=== PATIENT | male | born 1955 | race Caucasian/White ===

== ENCOUNTER → 2017-12-06 | Outpatient (CLI) | payer MEDICARE, OTHER, BC ==
[2017-12-06 08:45] LABS: HEMATOCRIT 41.3 % (42.0-52.0); HEMOGLOBIN 14.1 g/dl (13.5-17.5); MEAN CORPUSCULAR HEMOGLOBIN 30.7 pg (27.0-33.0); MEAN CORPUSCULAR HGB CONC 34.1 g/dl (32.0-36.5); PLATELET COUNT, AUTOMATED 191 10^3/uL (150-450); RED BLOOD COUNT 4.59 10^6/uL (4.30-6.10); RED CELL DISTRIBUTION WIDTH 13.2 % (11.5-14.5); WHITE BLOOD COUNT 5.9 10^3/uL (4.0-10.0)
[2017-12-06 08:50] LABS: APPEARANCE, URINE HAZY (CLEAR); BACTERIA, URINE AUTO NEGATIVE (NEGATIVE); BILIRUBIN, URINE AUTO NEGATIVE (NEGATIVE); BLOOD, URINE BLOOD NEGATIVE (NEGATIVE); COLOR, URINE YELLOW (YELLOW); GLUCOSE, URINE (UA) AUTO NEGATIVE (NEGATIVE); KETONE, URINE AUTO NEGATIVE (NEGATIVE); LEUKOCYTE ESTERASE, URINE AUTO NEGATIVE (NEGATIVE); NITRITE, URINE AUTO NEGATIVE (NEGATIVE); PROTEIN, URINE AUTO 1+ mg/dL (NEGATIVE); RBC, URINE AUTO 0 /HPF (0-3); SPECIFIC GRAVITY URINE AUTO 1.018 (1.002-1.035); SQUAMOUS EPITHELIAL CELL UR AU 0 /HPF (0-6); UROBILINOGEN, URINE AUTO 0.2 mg/dL (0.0-2.0); WBC, URINE AUTO 1 /HPF (0-3)
[2017-12-06 09:05] LABS: BLOOD UREA NITROGEN 15 MG/DL (7-18)
[2017-12-06 09:05] LABS: ALT/SGPT 45 U/L (12-78); AST/SGOT 27 U/L (7-37); CREATININE FOR GFR 0.89 MG/DL (0.70-1.30); GLOMERULAR FILTRATION RATE > 60.0 (>49); POTASSIUM SERUM 4.5 MEQ/L (3.5-5.1)
[2017-12-06 09:08] LABS: ESTIMATED AVERAGE GLUCOSE 166 MG/DL (60-110); HEMOGLOBIN A1c 7.4 %
[2017-12-06 09:11] LABS: ALBUMIN 3.8 GM/DL (3.2-5.2); ALBUMIN/GLOBULIN RATIO 1.19 (1.00-1.93); ALKALINE PHOSPHATASE 54 U/L (45-117); ALT/SGPT 44 U/L (12-78); ANION GAP 10 MEQ/L (8-16); AST/SGOT 28 U/L (7-37); BILIRUBIN,TOTAL 0.5 MG/DL (0.2-1.0); BLOOD UREA NITROGEN 15 MG/DL (7-18); CALCIUM LEVEL 8.8 MG/DL (8.8-10.2); CARBON DIOXIDE LEVEL 27 MEQ/L (21-32); CHLORIDE LEVEL 104 MEQ/L (98-107); CHOLESTEROL LEVEL 182 MG/DL (<200); CHOLESTEROL RISK RATIO 4.789 (<5); CREATININE FOR GFR 0.86 MG/DL (0.70-1.30); GLOMERULAR FILTRATION RATE > 60.0 (>49); GLUCOSE, FASTING 154 MG/DL (70-100); HDL CHOLESTEROL 38 MG/DL (>40); NON-HDL-C 144 MG/DL; POTASSIUM SERUM 4.8 MEQ/L (3.5-5.1); SODIUM LEVEL 141 MEQ/L (136-145); TRIGLYCERIDES LEVEL 459 MG/DL (<150)
== END ==
LOC: M WUC 08:09
DX: Z00.00 Encounter for general adult medical examination without abnormal findings (principal); E78.00 Pure hypercholesterolemia, unspecified; E11.9 Type 2 diabetes mellitus without complications
CPT/HCPCS: 84460

== ENCOUNTER → 2018-11-21 | Outpatient (REF) | payer MEDICARE, OTHER ==
[2018-11-21 13:53] LABS: HEMOGLOBIN A1c 6.9 %
== END ==
LOC: M SFHCPLAZ 10:06
PROVIDERS: ATTEND Family Medicine
DX: E11.9 Type 2 diabetes mellitus without complications (principal)

== ENCOUNTER → 2019-01-07 | Outpatient (REF) | payer MEDICARE, OTHER ==
[2019-01-07 13:41] LABS: CALCIUM LEVEL 9.1 MG/DL (8.8-10.2); CREATININE FOR GFR 3.47 MG/DL (0.70-1.30); GLOMERULAR FILTRATION RATE 19.1 (>49); POTASSIUM SERUM 5.9 MEQ/L (3.5-5.1)
[2019-01-07 13:45] LABS: CREATININE, URINE 40.1 MG/DL; MALB URINE SIEMENS 56.9 MG/L; MAU/CREAT RATIO 141.8 MCG/MG (0.0-30.0)
== END ==
LOC: M SFHCPLAZ 09:17
PROVIDERS: ATTEND Student in an Organized Health Care Education/Training Program
DX: E11.9 Type 2 diabetes mellitus without complications (principal)

== ENCOUNTER → 2019-12-25 | Outpatient (CLI) | payer MEDICARE, OTHER ==
[2019-12-25 14:39] LABS: BLOOD UREA NITROGEN 19 MG/DL (7-18); CALCIUM LEVEL 9.7 MG/DL (8.8-10.2); CARBON DIOXIDE LEVEL 29 MEQ/L (21-32); CHLORIDE LEVEL 102 MEQ/L (98-107); CHOLESTEROL LEVEL 196 MG/DL (<200); CREATININE FOR GFR 0.84 MG/DL (0.70-1.30); GLOMERULAR FILTRATION RATE > 60.0 (>49); GLUCOSE, FASTING 116 MG/DL (70-100); HDL CHOLESTEROL 47 MG/DL (>40); LDL CHOLESTEROL 79 MG/DL (<100); NON-HDL-C 149 MG/DL; POTASSIUM SERUM 4.7 MEQ/L (3.5-5.1); SODIUM LEVEL 135 MEQ/L (136-145); TRIGLYCERIDES LEVEL 349 MG/DL (<150)
[2019-12-25 14:48] LABS: CREATININE, URINE 65.3 MG/DL; MALB URINE SIEMENS 93.4 MG/L
[2019-12-25 14:50] LABS: HEMOGLOBIN A1c 6.4 %
== END ==
LOC: M PLALAB 09:11
PROVIDERS: ATTEND Family Medicine
DX: E11.9 Type 2 diabetes mellitus without complications (principal); N18.3 Chronic kidney disease, stage 3 (moderate)

== ENCOUNTER → 2020-09-15 | Outpatient (REF) | payer MEDICARE, OTHER ==
[2020-09-15 14:51] LABS: ALT/SGPT 36 U/L (12-78); BILIRUBIN,TOTAL 0.8 MG/DL (0.2-1.0); BLOOD UREA NITROGEN 22 MG/DL (7-18); CALCIUM LEVEL 9.4 MG/DL (8.8-10.2); CARBON DIOXIDE LEVEL 27 MEQ/L (21-32); CHLORIDE LEVEL 104 MEQ/L (98-107); CHOLESTEROL LEVEL 183 MG/DL (<200); CHOLESTEROL RISK RATIO 3.452 (<5); CREATININE FOR GFR 0.83 MG/DL (0.70-1.30); GLOMERULAR FILTRATION RATE > 60.0 (>49); GLUCOSE, FASTING 106 MG/DL (70-100); HDL CHOLESTEROL 53 MG/DL (>40); LDL CHOLESTEROL 95 MG/DL (<100); NON-HDL-C 130 MG/DL; POTASSIUM SERUM 4.8 MEQ/L (3.5-5.1); SODIUM LEVEL 137 MEQ/L (136-145); TRIGLYCERIDES LEVEL 175 MG/DL (<150)
[2020-09-15 18:37] LABS: HEMOGLOBIN A1c 6.3 %
== END ==
LOC: M PLALAB 09:05
PROVIDERS: ATTEND Family Medicine
DX: E78.00 Pure hypercholesterolemia, unspecified (principal); N18.31 Chronic kidney disease, stage 3a; E11.22 Type 2 diabetes mellitus with diabetic chronic kidney disease

== ENCOUNTER → 2020-10-16 | Outpatient (CLI) | payer MEDICARE, BC, OTHER ==
--- NOTE | 2020-10-16 08:28 | REP ---
INDICATION: CARDIAC MURMUR, UNSPECIFIED COMPARISON: None. TECHNIQUE: Multiple ultrasonographic images of the abdominal aorta were obtained from the level of the celiac access to the aortoiliac bifurcation and the longitudinal and transverse scan planes along with color Doppler imaging. FINDINGS: The maximal AP dimension of the abdominal aorta as measured in the longitudinal scan plane is 2.7 cm. There is no evidence of common iliac arterial ectasia IMPRESSION: No evidence of abdominal aortic aneurysm. <Electronically signed by Riley Diehl > 10/16/20 [id number]
--- NOTE | 2020-10-16 20:23 | ECHO ---
ECHOCARDIOGRAM DATE OF PROCEDURE: 10/16/2020 Age: 65 Gender: Male Height: 180 cm Weight: 106 kg REFERRING PHYSICIAN: Carolynn Vasques M.D. INDICATION: Heart murmur. MEASUREMENTS: IVS 1.4 cm LV 5.4 cm LVPW 1.4 cm LA 4.9 cm Aorta 3.6 cm Left atrium volume index 34 ml/m2 Mitral E wave velocity 56 cm/s A wave 68 cm/s E prime septal 4.9 cm/s E prime lateral 6.5 cm/s FINDINGS: This study is of acceptable technical quality. Underlying sinus bradycardia with ventricular rate a little below 50 beats per minute. QRS complex is mildly widened. Left ventricle is normal size. Mild left ventricular hypertrophy is noted. Overall normal systolic function with estimated ejection fraction (EF) of 55-60%. Right ventricle is normal size and systolic function. Left atrium is moderately enlarged. Right atrium was poorly seen. Aortic valve is calcified and it has restricted mobility. Mitral and tricuspid valves appear normal. Pulmonic valve was poorly seen. No pericardial effusion is noted. Inferior vena cava was not seen. Aortic root, aortic arch and visualized segment of abdominal aorta appear grossly normal based on somewhat limited views. Doppler interrogation of aortic valve reveals mild insufficiency and moderate stenosis. Peak gradient was 46, mean gradient 27. Calculated aortic valve area was 1.0 cm2, which likely overestimates severity of aortic stenosis. Dimensional index was 0.26. There is trace mitral and trace tricuspid insufficiency. Quality of TR jet was not sufficient to estimate pulmonary artery pressure. Mitral inflow pattern and tissue Doppler imaging of mitral annulus reveal grade 1 diastolic dysfunction. CONCLUSIONS: 1. Study is of acceptable technical quality. Patient is in sinus bradycardia with wide QRS complex. 2. Normal left ventricular (LV) size with moderate left ventricular hypertrophy (LVH) and preserved systolic function. Grade 1 diastolic dysfunction. 3. Calcific but tricuspid aortic valve. Resulting mild insufficiency and at least moderate stenosis (mean gradient 27 mmHg, dimensionless index 0.26). 4. Trace mitral and tricuspid insufficiency. 5. Unable to reliably estimate central venous pressure and pulmonary artery pressure. COMMENTS: If patient is asymptomatic, follow up in 1 year is recommended. MTDD
== END ==
LOC: M RAD 07:01
PROVIDERS: ATTEND Family Medicine
DX: R01.1 Cardiac murmur, unspecified (principal); I35.8 Other nonrheumatic aortic valve disorders; R00.1 Bradycardia, unspecified; F17.211 Nicotine dependence, cigarettes, in remission

== ENCOUNTER → 2020-12-22 | Outpatient (CLI) | payer MEDICARE, BC, OTHER ==
[2020-12-22 11:38] LABS: CREATININE, URINE 13.2 MG/DL; MALB URINE SIEMENS 26.1 MG/L; MAU/CREAT RATIO 197.7 MCG/MG (0.0-30.0)
[2020-12-22 12:19] LABS: HEMOGLOBIN A1c 6.9 %
== END ==
LOC: M LAB 09:50
PROVIDERS: ATTEND Family Medicine
DX: E11.9 Type 2 diabetes mellitus without complications (principal)

== ENCOUNTER → 2021-11-01 | Outpatient (CLI) | payer MEDICARE, BC, OTHER ==
[~2021-11-01] MED LIST: JARD1TAB PO; LISI5TAB11 PO; METF10004 PO; ROSU20TA5 PO; VITMTA PO
== END ==
LOC: M LABSMTC 09:26
PROVIDERS: ATTEND Anesthesiology
DX: Z01.812 Encounter for preprocedural laboratory examination (principal); Z20.822 Contact with and (suspected) exposure to COVID-19

== ENCOUNTER 2021-11-04 06:48 | Day surgery (SDC) | payer MEDICARE, BC, OTHER ==
[~2021-11-04] VITALS: Ht 177.8 cm; Wt 103.4 kg
[~2021-11-04 06:48] MED LIST changes: +NS 1,000 ML IV ONE
[2021-11-04] MEDS ORDERED: LIDOCAINE 2% 100MG/5ML SDV (FOR ANES.) As Ordered ONE (07:39)
[2021-11-04] MEDS ORDERED: propofoL 200 MG/20 ML VIAL As Ordered ONE (07:39)
[2021-11-04] MEDS ORDERED: hydrALAZINE 20MG/ML 1ML VIAL (J0360 PER 20MG) As Ordered ONE (07:41)
[2021-11-04 08:10] VITALS: BP 128/60
== END 2021-11-04 08:27 | disposition home or self-care (01) ==
LOC: M OPP 06:48
PROVIDERS: ATTEND Surgery
DX: Z86.010 Personal history of colon polyps (principal); D12.6 Benign neoplasm of colon, unspecified; I10 Essential (primary) hypertension; E78.5 Hyperlipidemia, unspecified; E11.9 Type 2 diabetes mellitus without complications; M19.90 Unspecified osteoarthritis, unspecified site; Z87.891 Personal history of nicotine dependence; Z88.1 Allergy status to other antibiotic agents; Z79.84 Long term (current) use of oral hypoglycemic drugs; Z79.899 Other long term (current) drug therapy
CPT/HCPCS: 45385; 88305; J0360

== ENCOUNTER → 2022-09-06 | Outpatient (CLI) | payer MEDICARE, BC, OTHER ==
[~2022-09-06] MED LIST changes: -NS 1,000 ML IV ONE; -ROSU20TA5 PO; +ROSU20TA61 PO
[2022-09-06 16:42] LABS: BASO # 0.1 10^3/uL (0.0-0.2); BASO % 0.6 % (0.0-1.0); EOS # 0.2 10^3/uL (0.0-0.5); EOS % 2.8 % (0.0-3.0); HEMATOCRIT 44.4 % (42.0-52.0); HEMOGLOBIN 14.4 g/dl (13.5-17.5); LYMPH # 2.2 10^3/uL (1.5-5.0); LYMPH % 28.8 % (24.0-44.0); MEAN CORPUSCULAR HEMOGLOBIN 29.9 pg (27.0-33.0); MEAN CORPUSCULAR HGB CONC 32.4 g/dl (32.0-36.5); MEAN CORPUSCULAR VOLUME 92.3 fl (80.0-96.0); MONO # 0.8 10^3/uL (0.0-0.8); MONO % 10.2 % (2.0-8.0); NEUTROPHILS # 4.4 10^3/uL (1.5-8.5); NEUTROPHILS % 57.1 % (36.0-66.0); PLATELET COUNT, AUTOMATED 222 10^3/uL (150-450); RED BLOOD COUNT 4.81 10^6/uL (4.30-6.10); WHITE BLOOD COUNT 7.7 10^3/uL (4.0-10.0)
[2022-09-06 16:49] LABS: ALBUMIN 4.2 G/DL (3.2-5.2); ALKALINE PHOSPHATASE 60 U/L (46-116); ALT/SGPT 30 U/L (7.0-40); AST/SGOT 31 U/L (<34); BILIRUBIN,TOTAL 0.7 MG/DL (0.3-1.2); BLOOD UREA NITROGEN 17 MG/DL (9-23); CALCIUM LEVEL 9.3 MG/DL (8.3-10.6); CARBON DIOXIDE LEVEL 27 MMOL/L (20-31); CHLORIDE LEVEL 105 MMOL/L (98-107); CHOLESTEROL LEVEL 162 MG/DL (<200); CHOLESTEROL RISK RATIO 2.81 (<5); CREATININE FOR GFR 0.83 MG/DL (0.70-1.30); GLOMERULAR FILTRATION RATE > 60.0 (>49); GLUCOSE, FASTING 121 MG/DL (74-106); HDL CHOLESTEROL 57.6 MG/DL (>40); LDL CHOLESTEROL 75.8 MG/DL (<100); NON-HDL-C 104.4 MG/DL; POTASSIUM SERUM 5.2 MMOL/L (3.5-5.1); SODIUM LEVEL 139 MMOL/L (136-145); TRIGLYCERIDES LEVEL 143 MG/DL (<150)
[2022-09-06 16:50] LABS: FREE T4 1.13 NG/DL (0.89-1.76); THYROID STIMULATING HORMONE 1.989 uIU/ML (0.55-4.78); TOTAL 25(OH) VITAMIN D 32.7 NG/ML (20.0-100.0)
== END ==
LOC: M PLALAB 12:53
PROVIDERS: ATTEND Physician Assistant
DX: E78.2 Mixed hyperlipidemia (principal); E11.9 Type 2 diabetes mellitus without complications; I10 Essential (primary) hypertension; Z76.89 Persons encountering health services in other specified circumstances; Z12.5 Encounter for screening for malignant neoplasm of prostate; Z79.899 Other long term (current) drug therapy

== ENCOUNTER → 2023-09-12 | Outpatient (CLI) | payer MEDICARE, BC, OTHER ==
[2023-09-12 13:15] LABS: BASO # 0.1 10^3/uL (0.0-0.2); BASO % 0.7 % (0.0-1.0); EOS # 0.3 10^3/uL (0.0-0.5); EOS % 3.1 % (0.0-3.0); HEMOGLOBIN 14.9 g/dl (13.5-17.5); LYMPH % 24.3 % (24.0-44.0); MEAN CORPUSCULAR HEMOGLOBIN 29.6 pg (27.0-33.0); MEAN CORPUSCULAR HGB CONC 32.4 g/dl (32.0-36.5); MEAN CORPUSCULAR VOLUME 91.5 fl (80.0-96.0); MONO # 0.8 10^3/uL (0.0-0.8); MONO % 9.3 % (2.0-8.0); NEUTROPHILS % 62.2 % (36.0-66.0); PLATELET COUNT, AUTOMATED 195 10^3/uL (150-450); RED BLOOD COUNT 5.03 10^6/uL (4.30-6.10)
[2023-09-12 13:34] LABS: CREATININE, URINE 58.8 MG/DL
[2023-09-12 13:41] LABS: MAU/CREAT RATIO 103.7 MCG/MG (0.0-30.0)
[2023-09-12 13:44] LABS: TOTAL 25(OH) VITAMIN D 33.3 NG/ML (20.0-100.0); VITAMIN B12 LEVEL 305 PG/ML (211-911)
[2023-09-12 13:48] LABS: ALBUMIN 3.9 G/DL (3.2-5.2); ALKALINE PHOSPHATASE 53 U/L (46-116); ALT/SGPT 24 U/L (7.0-40); AST/SGOT 15 U/L (<34); BILIRUBIN,TOTAL 0.9 MG/DL (0.3-1.2); BLOOD UREA NITROGEN 19 MG/DL (9-23); CALCIUM LEVEL 9.6 MG/DL (8.3-10.6); CARBON DIOXIDE LEVEL 28 MMOL/L (20-31); CHLORIDE LEVEL 104 MMOL/L (98-107); CHOLESTEROL LEVEL 177 MG/DL (<200); CREATININE FOR GFR 0.85 MG/DL (0.70-1.30); GLOMERULAR FILTRATION RATE > 60.0 (>49); GLUCOSE, FASTING 116 MG/DL (74-106); POTASSIUM SERUM 4.8 MMOL/L (3.5-5.1); SODIUM LEVEL 139 MMOL/L (136-145); TRIGLYCERIDES LEVEL 255 MG/DL (<150)
== END ==
LOC: M PLALAB 10:47
PROVIDERS: ATTEND Physician Assistant
DX: N52.9 Male erectile dysfunction, unspecified (principal); E11.9 Type 2 diabetes mellitus without complications; E78.2 Mixed hyperlipidemia; I10 Essential (primary) hypertension; Z79.899 Other long term (current) drug therapy; Z12.5 Encounter for screening for malignant neoplasm of prostate

== ENCOUNTER → 2024-10-16 | Outpatient (CLI) | payer MEDICARE, BC ==
[~2024-10-16] MED LIST changes: -ROSU20TA61 PO; +ROSU20TA86 PO
== END ==
LOC: M CARPUL 07:59
PROVIDERS: ATTEND Student in an Organized Health Care Education/Training Program
DX: I31.39 Other pericardial effusion (noninflammatory) (principal)

== ENCOUNTER → 2024-11-19 | Outpatient (CLI) | payer MEDICARE, BC ==
[2024-11-19 11:02] LABS: ALT/SGPT 27.0 U/L (7.0-40); AST/SGOT 27.0 U/L (<34); CALCIUM LEVEL 8.9 MG/DL (8.3-10.6); CARBON DIOXIDE LEVEL 29.0 MMOL/L (20-31); CHLORIDE LEVEL 101.0 MMOL/L (98-107); CHOLESTEROL LEVEL 159.0 MG/DL (<200); CHOLESTEROL RISK RATIO 3.04 (<5); CREATININE FOR GFR 0.92 MG/DL (0.70-1.30); GLOMERULAR FILTRATION RATE 89.5 (>42); LDL CHOLESTEROL 64.9 MG/DL (<100); NON-HDL-C 106.7 MG/DL; POTASSIUM SERUM 5.1 MMOL/L (3.5-5.1); SODIUM LEVEL 138.0 MMOL/L (136-145); TRIGLYCERIDES LEVEL 209.0 MG/DL (<150)
[2024-11-19 11:27] LABS: ESTIMATED AVERAGE GLUCOSE 154.0 MG/DL (60-110)
[2024-11-19 11:31] LABS: CREATININE, URINE 62.5 MG/DL; MALB URINE SIEMENS 23.0 MG/L; MAU/CREAT RATIO 36.8 MCG/MG (0.0-30.0)
== END ==
LOC: M PLALAB 08:25
PROVIDERS: ATTEND Student in an Organized Health Care Education/Training Program
DX: E11.22 Type 2 diabetes mellitus with diabetic chronic kidney disease (principal); E78.2 Mixed hyperlipidemia; N18.31 Chronic kidney disease, stage 3a